=== PATIENT | female | born 1965 | race Caucasian/White ===

== ENCOUNTER 2017-09-19 10:43 | Emergency (ER) | payer BC ==
--- NOTE | 2017-09-19 10:55 | Emergency Department Record ---
History of Present Illness - General Chief complaint: Lower Extremity Pain Stated complaint: LEG SWELLING Time Seen by Provider: 09/19/17 10:44 Source: Patient, Old records reviewed Mode of Arrival: Ambulatory Limitations: No limitations - History of Present Illness Initial comments: 51 yo presents with tenderness and redness to the inner thighs of both legs. It is increased on the left compared to the right. No cough, shortness of breath or chest pain. No history of DVT, Cancer, HRT, trauma, recent surgery, The patient denies being bedridden in the last one month. She was seen in the [facility] and had a D-dimer. Per [facility] policy they do not perform US. The patient was referred to the ED for additionally evaluation and US. MD Complaint: Extremity pain, Extremity swelling -: Days(s) (4) Location: Bilateral -: Yes Myalgia Radiation: Proximal Quality: Aching Consistency: Constant Improves with: Nothing Worsens with: Palpation Associated Symptoms: Denies other symptoms - Related Data Previous Rx's Medication Instructions Recorded Naproxen [Naprosyn] 500 mg PO Q12H #30 tab 09/19/17 Allergies Allergy/AdvReac Type Severity Reaction Status Date / Time No Known Drug Intolerances Allergy Unknown Unverified 09/19/17 08:35 Review of Systems Constitutional: Denies: Chills, Fever, Malaise, Night sweats, Weakness Eyes: Denies: Eye discharge, Eye pain, Photophobia, Vision change ENT: Denies: Congestion, Throat pain Respiratory: Denies: Cough, Dyspnea, Hemoptysis, Stridor, Wheezes Cardiovascular: Denies: Chest pain, Palpitations, Syncope Endocrine: Denies: Fatigue Gastrointestinal: Denies: Abdominal pain, Diarrhea, Hematemesis, Hematochezia, Melena, Nausea, Vomiting Genitourinary: Denies: Dysuria, Urgency Musculoskeletal: Reports: As per HPI, Myalgia. Denies: Arthralgia, Back pain, Joint swelling Skin: Reports: As per HPI, Change in color. Denies: Bruising Neurological: Denies: Confusion, Headache, Numbness, Tremors, Vertigo, Weakness Psychiatric: Denies: Anxiety Hematological/Lymphatic: Denies: Blood Clots, Easy bleeding, Easy bruising, Swollen glands Past Medical History - SOCIAL HISTORY Smoking Status: Current every day smoker - RESPIRATORY Hx Respiratory Disorders: Yes Hx Bronchitis: Yes Comment:: recent dx of bronchitis, chest xray negative - CARDIOVASCULAR Hx Cardio Disorders: Yes Hx Hypertension: Yes - NEURO Hx Neuro Disorders: Yes Hx Headaches: Yes (tension headache) - GI Hx GI Disorders: Yes Hx Reflux: Yes Hx Ulcer: Yes Comment:: dysphagia with solid food - Hx Genitourinary Disorders: No - ENDOCRINE Hx Endocrine Disorders: No - MUSCULOSKELETAL Hx Musculoskeletal Disorders: Yes Hx Arthritis: Yes - PSYCH Hx Psych Problems: Yes Hx Anxiety: Yes Hx Depression: Yes - HEMATOLOGY/ONCOLOGY Hx Hematology/Oncology Disorders: Yes Hx Anemia: Yes Family Medical History Hx HTN: Father, Mother Physical Exam - General General Appearance: Alert, Oriented x3, Cooperative, No acute distress Limitations: No limitations - Head Head exam: Atraumatic, Normocephalic, Normal inspection - Eye Eye exam: Normal appearance. negative: Conjunctival injection, Periorbital swelling - ENT ENT exam: Normal exam, Mucous membranes moist Ear exam: Normal external inspection Nasal Exam: Normal inspection Mouth exam: Normal external inspection - Neck Neck exam: Normal inspection, Full ROM. negative: Tenderness - Respiratory Respiratory exam: Normal lung sounds bilaterally. negative: Respiratory distress - Cardiovascular Cardiovascular Exam: Regular rate, Normal rhythm, Normal heart sounds - GI/Abdominal GI/Abdominal exam: Soft. negative: Tenderness - Rectal Rectal exam: Deferred - exam: Deferred - Extremities Extremities exam: Calf tenderness (very mild left upper calf tenderness, no swelling of the calf bilaterallly), Full ROM, Normal capillary refill, Other ( No pitting edema). negative: Normal inspection, Pedal edema Image of Full Body: 1 - mild erythema with tenderness of the superfical inner thigh 2 - mild erythema with tenderness of the superfical inner thigh - Back Back exam: Denies: CVA tenderness (R), CVA tenderness (L) - Neurological Neurological exam: Alert, Normal gait, Oriented X3 - Psychiatric Psychiatric exam: Normal affect, Normal mood - Skin Skin exam: Erythema. negative: Abrasion, Cyanosis, Diaphoretic, Dry Course - Reevaluation(s) Reevaluation #1: Venous US order given the mild findings over both inner thighs. 09/19/17 10:56 09/19/17 12:43 The US was reviewed NO DVT Superficial thrombophlebitis noted We discussed the results and need for close follow up with the PCP We discussed home care and reasons to return to the ED Disposition Disposition: Discharge Clinical Impression: Superficial thrombophlebitis Qualifiers: Superficial thrombophlebitis-Involved body area: lower extremity Laterality: bilateral Qualified Code(s): I80.03 - Phlebitis and thrombophlebitis of superficial vessels of lower extremities, bilateral Disposition: Home, Self-Care Condition: (1) Good Instructions: Superficial Thrombophlebitis (ED) Additional Instructions: Call your doctor for follow up in the next week Use the warm compress and Naprosyn as discussed Prescriptions: Naproxen [Naprosyn] 500 mg PO Q12H #30 tab.dr Forms: Patient Portal Access Time of Disposition: 12:45 Quality - Quality Measures Quality Measures: N/A - Blood Pressure Screening Does Patient Have Any of the Following: No Blood Pressure Classification: Hypertensive Reading Systolic Measurement: 130 Diastolic Measurement: 94 Screening for High Blood Pressure: < Pre-Hypertensive BP, F/U Documented > [ G8950] Pre-Hypertensive Follow-up Interventions: Referral to alternative/primary care provider.
--- NOTE | 2017-09-20 09:20 | US VENOUS DOPPLER REPORT ---
EXAM: BILATERAL LOWER EXTREMITY VENOUS DOPPLER ULTRASOUND HISTORY: THIGH REDNESS, DISCOMFORT. TECHNIQUE: Real-time segal scale sonographic imaging of the bilateral lower extremities was performed with Duplex Doppler and spectral waveform analysis. Comparison: None. FINDINGS: Normal color flow and compressibility in the right common femoral vein, right greater saphenous vein, right profunda femoral vein, right superficial femoral vein, right popliteal vein, right posterior tibial vein, right peroneal vein, and right anterior tibial vein. Normal color flow and compressibility in the left common femoral vein, left greater saphenous vein, left profunda femoral vein, left superficial femoral vein, left popliteal vein, left peroneal vein, left posterior tibial vein, and left anterior tibial vein. Superficial venous structures with no color flow or compressibility in the right mid thigh in the area of pain consistent with superficial clot. Superficial venous structures above the left knee and within the left calf with no flow consistent with superficial clot. Normal respiratory phasicity in the bilateral common femoral veins on spectral analysis. IMPRESSION: 1. NO EVIDENCE OF DEEP VENOUS THROMBOSIS IN EITHER LOWER EXTREMITY. 2. FINDINGS CONSISTENT WITH SUPERFICIAL THROMBOPHLEBITIS IN THE RIGHT THIGH WELL DISTAL LEFT THIGH AND LEFT CALF. JOB NUMBER: [id number] [facility]
== END 2017-09-19 12:53 | disposition home or self-care (01) ==
LOC: ER 10:43
DX: I80.01 Phlebitis and thrombophlebitis of superficial vessels of right lower extremity (principal); I80.02 Phlebitis and thrombophlebitis of superficial vessels of left lower extremity
CPT/HCPCS: 93970; 99283

== ENCOUNTER 2018-06-07 19:33 | Emergency (ER) | payer BC ==
--- NOTE | 2018-06-07 19:53 | Emergency Department Record ---
History of Present Illness - General Chief Complaint: Ankle/Foot Injury Stated Complaint: LT FOOT INJURY Time Seen by Provider: 06/07/18 19:43 Source: Patient Mode of Arrival: Ambulatory Limitations: No limitations - History of Present Illness Initial Comments: pt injured l foot 2wks ago and it still hurts. she did it falling off a swing Complaint: Foot injury Onset/Timin -: Week(s) Injury: Foot: Left Type of Injury: Blunt Place: Home Severity: Moderate Severity scale (1-10): 5 Improves With: Nothing Worsens With: Nothing Context: Jumping Associated Symptoms: Swelling, Ambulatory, Able to partially bear weight Treatments Prior to Arrival: NSAIDS - Related Data Allergies Allergy/AdvReac Type Severity Reaction Status Date / Time No Known Drug Intolerances Allergy Unknown Unverified 09/19/17 08:35 Travel Screening - Travel/Exposure Within Last 30 Days Have you traveled within the last 30 days?: No - Travel Symptoms Symptom Screening: None Review of Systems Reviewed: No additional complaints except as noted below Constitutional: Reports: As per HPI. Denies: Chills, Fever, Malaise, Night sweats, Weakness, Weight change Eyes: Reports: As per HPI. Denies: Eye discharge, Eye pain, Photophobia, Vision change ENT: Reports: As per HPI. Denies: Congestion, Dental pain, Ear pain, Epistaxis , Hearing loss, Throat pain Respiratory: Reports: As per HPI. Denies: Cough, Dyspnea, Hemoptysis, Stridor, Wheezes Cardiovascular: Reports: As per HPI. Denies: Arrhythmia, Chest pain, Dyspnea on exertion, Edema, Murmurs, Orthopnea, Palpitations, Paroxysmal nocturnal dyspnea, Rheumatic Fever, Syncope Endocrine: Reports: As per HPI. Denies: Fatigue, Heat or cold intolerance, Polydipsia, Polyuria Gastrointestinal: Reports: As per HPI. Denies: Abdominal pain, Constipation, Diarrhea, Hematemesis, Hematochezia, Melena, Nausea, Vomiting Genitourinary: Reports: As per HPI. Denies: Abnormal menses, Discharge, Dyspareunia, Dysuria, Frequency, Hematuria, Incontinence, Retention, Urgency Musculoskeletal: Reports: As per HPI. Denies: Arthralgia, Back pain, Gout, Joint swelling, Myalgia, Neck pain Skin: Reports: As per HPI. Denies: Bruising, Change in color, Change in hair/ nails, Lesions, Pruritus, Rash Neurological: Reports: As per HPI. Denies: Abnormal gait, Confusion, Headache, Numbness, Paresthesias, Seizure, Tingling, Tremors, Vertigo, Weakness Psychiatric: Reports: As per HPI. Denies: Anxiety, Auditory hallucinations, Depression, Homicidal thoughts, Suicidal thoughts, Visual hallucinations Hematological/Lymphatic: Reports: As per HPI. Denies: Anemia, Blood Clots, Easy bleeding, Easy bruising, Swollen glands Past Medical History - SOCIAL HISTORY Smoking Status: Current every day smoker Alcohol Use: Rare - RESPIRATORY Hx Respiratory Disorders: Yes Hx Bronchitis: Yes Comment:: recent dx of bronchitis, chest xray negative - CARDIOVASCULAR Hx Cardio Disorders: Yes Hx Hypertension: Yes - NEURO Hx Neuro Disorders: Yes Hx Headaches: Yes (tension headache) - GI Hx GI Disorders: Yes Hx Reflux: Yes Hx Ulcer: Yes Comment:: dysphagia with solid food - Hx Genitourinary Disorders: No - ENDOCRINE Hx Endocrine Disorders: No - MUSCULOSKELETAL Hx Musculoskeletal Disorders: Yes Hx Arthritis: Yes - PSYCH Hx Psych Problems: Yes Hx Anxiety: Yes Hx Depression: Yes - HEMATOLOGY/ONCOLOGY Hx Hematology/Oncology Disorders: Yes Hx Anemia: Yes Family Medical History Any Significant Family History?: Yes Family Hx Comment (NOT TO BE USED IN PLACE OF ITEMS BELOW): Parkinsons's=mother Hx Diabetes: Father Hx HTN: Father, Mother Physical Exam - General General Appearance: Alert, Oriented x3, Cooperative, Mild distress - Head Head exam: Normal inspection - Eye Eye exam: Normal appearance, PERRL, EOMI Pupils: Normal accommodation - ENT ENT exam: Normal exam, Mucous membranes moist, Normal external ear exam, Normal orophraynx Ear exam: Normal external inspection. negative: External canal tenderness Nasal Exam: Normal inspection. negative: Discharge, Sinus tenderness Mouth exam: Normal external inspection, Tongue normal Teeth exam: Normal inspection. negative: Dental caries Throat exam: Normal inspection. negative: Tonsillar erythema, Tonsillar exudate - Neck Neck exam: Normal inspection, Full ROM. negative: Tenderness - Respiratory Respiratory exam: Normal lung sounds bilaterally. negative: Respiratory distress - Cardiovascular Cardiovascular Exam: Regular rate, Normal rhythm, Normal heart sounds - GI/Abdominal GI/Abdominal exam: Soft, Normal bowel sounds. negative: Tenderness - Rectal Rectal exam: Deferred - exam: Deferred - Extremities Extremities exam: Normal inspection, Full ROM, Normal capillary refill. negative: Tenderness Image of Feet: 1 - tender w ecchymosis - Back Back exam: Reports: Normal inspection, Full ROM. Denies: Muscle spasm, Rash noted, Tenderness - Neurological Neurological exam: Alert, CN II-XII intact, Normal gait, Oriented X3 - Psychiatric Psychiatric exam: Normal affect, Normal mood - Skin Skin exam: Dry, Intact, Normal color, Warm Course Vital Signs 06/07/18 19:40 Pulse Rate [ 78 Pulse Ox Probe] Respiratory 24 Rate Blood Pressure 126/76 [Left Arm] Pulse Ox 99 Disposition Disposition: Discharge Clinical Impression: Contusion Qualifiers: Encounter type: initial encounter Contusion area: foot Laterality: left Qualified Code(s): S90.32XA - Contusion of left foot, initial encounter Disposition: Home, Self-Care Condition: (1) Good Instructions: Contusion in Adults (ED) Additional Instructions: follow up with family doctor. return sooner if worse. motrin for pain with food Forms: Patient Portal Access Quality - Quality Measures Quality Measures: N/A - Blood Pressure Screening Does Patient Have Any of the Following: No Blood Pressure Classification: Pre-Hypertensive BP Reading Systolic Measurement: 126 Diastolic Measurement: 76 Screening for High Blood Pressure: < Pre-Hypertensive BP, F/U Documented > [ G8950] Pre-Hypertensive Follow-up Interventions: Follow-up with rescreen every year.
--- NOTE | 2018-06-09 14:50 | RADIOLOGY REPORT ---
DATE: 06/07/2018. EXAM: LEFT FOOT. HISTORY: Injury. TECHNIQUE: Three views of the left foot. COMPARISON: None. ENCOUNTER: Initial. FINDINGS: Negative for acute fracture or dislocation. Small calcaneal spurs. Soft tissues are unremarkable. IMPRESSION: NO ACUTE OSSEOUS ABNORMALITY. JOB NUMBER: [id number] [facility]
== END 2018-06-07 20:48 | disposition home or self-care (01) ==
LOC: ER 19:33
DX: S90.32XA Contusion of left foot, initial encounter (principal); W09.1XXA Fall from playground swing, initial encounter; Y92.007 Garden or yard of unspecified non-institutional (private) residence as the place of occurrence of the external cause; F17.210 Nicotine dependence, cigarettes, uncomplicated
CPT/HCPCS: 99283